=== PATIENT | female | born 1950 | race Caucasian/White ===

== ENCOUNTER 2021-03-02 09:55 | Day surgery (SDC) | payer OTHER, BC ==
--- NOTE | 2021-02-26 12:13 | RAD REPORT ---
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 COMPARISON: CHEST SINGLE VIEW dated 06/09/2010 FINDINGS: The lungs are clear. The heart is mildly prominent in size. No displaced fractures. IMPRESSION: Cardiac size is mildly prominent.
[2021-02-26 12:14] LABS: Absolute Lymphocytes (CBC) 1.2 K/uL (0.7-4.9); Basophils % 0.7 % (0-1.3); Hematocrit 42.9 % (36.0-45.0); MPV 8.4 fL (7.6-11.3); RBC Red Blood Cell Count 4.38 M/uL (3.86-4.86)
[2021-02-26 12:32] LABS: Protime INR 1.03
[2021-03-02] MEDS ORDERED: NA CHLORIDE 0.9% 500 ML ONE (10:26)
[2021-03-02 10:43] VITALS: TEMP 97.1; O2SAT 97
[2021-03-02] MEDS ORDERED: LIDOCAINE 1% 20 ML MDV ONE (11:04)
[2021-03-02] MEDS ORDERED: HEPA 1000U/500MLS 1,000 UNIT/500 ML BAG IV ONE (11:04)
[2021-03-02] MEDS ORDERED: MIDAZOLAM HCL 2 MG/2 ML INJ ONE (11:15)
[2021-03-02] MEDS ORDERED: FENTANYL CITR 100 MCG/2 ML ONE (11:15)
[2021-03-02] MEDS ORDERED: ATROPINE SULF 1 MG/10 ML SYR IV ONE (11:15)
[2021-03-02] MEDS ORDERED: NA CHLORIDE 0.9% 0 ML ONE (11:16)
[2021-03-02] MEDS ORDERED: NA CHLORIDE 0.9% 100 ML IV ONE (11:16)
[2021-03-02 13:26] VITALS: BP 140/61
--- NOTE | 2021-03-03 12:00 | OP ---
Date of Procedure: 03/02/2021 Surgeon: Dave Vernon MD Cook Supervisor: Pauline Lamas. Procedures: Left and right heart catheterization, cardiac output measurement, O2 saturation measurem ent. Indication: Critical aortic stenosis. Procedure In Detail: Ms. Arora is a 70-year-old woman with symptomatic aortic stenosis. Echocard iography showed aortic valve area of 0.6 sq cm. She has been having chest pain, shortness of breath, fatigue. Brought to the tender labor on 03/02/2021, prepped and draped in the routine sterile fashion. She was given Versed for sedation. We introduced a 6-[place] sheath in the right common femoral mega ry and 7-[place] sheath in the right common femoral vein using the Seldinger technique and 10 mL of Xy locaine. We introduced a Myrtle-Andrew catheter into the right common femoral vein all the way up to the right atrium, then right ventricle, then pulmonary artery. Pressures were measured along the way in the pulmonary artery and cardiac output measurements were taken. Oxygen saturations were measured i n the wedge PA, right ventricle, right atrium, IVC. The Myrtle-Andrew catheter was pulled out. Left cat heterization was done using JL4 and JR4 catheter. She has a normal left system. Her left main, LAD, and circumflex were normal. She had about a 50% distal RCA stenosis. I did not attempt to cross the valve as it appeared to be very calcified with a very tight stenosis on echocardiography. The patie nt tolerated the procedure well. There were no complications. Blood Loss: 5 mL. Anesthesia: Total conscious sedation was 60 minutes. Final Diagnoses: 1.Critical aortic stenosis by echo, normal cardiac output of 5.2 L/minute, normal O2 saturations, no rmal right heart pressures. 2.Mild coronary artery disease with 50% RCA. Plan: The plan is for a possible TAVR. I will consult Dr. Bryant in that regard. The patient will go home today after 2 hours of bedrest. Angio-Seal was used to close the case. She will come to see us in the office in the near future. АННА/YANIRA Voice ID: [id number] Report ID: [id number]
== END 2021-03-02 13:45 | disposition home or self-care (01) ==
LOC: CCL 09:55
DX: I35.0 Nonrheumatic aortic (valve) stenosis (principal); I25.10 Atherosclerotic heart disease of native coronary artery without angina pectoris; I10 Essential (primary) hypertension; E78.2 Mixed hyperlipidemia; I25.2 Old myocardial infarction; Z87.891 Personal history of nicotine dependence; Z20.822 Contact with and (suspected) exposure to COVID-19; Z82.49 Family history of ischemic heart disease and other diseases of the circulatory system
CPT/HCPCS: 93005; 85025; 80048; 36415; 85610; 85730; 71046; 93456; U0003; C1893; C1760; J2250; J3010; J7040; J1644; J0583

== ENCOUNTER 2022-06-28 12:53 | Emergency (ER) | payer OTHER, BC ==
--- OUTSIDE RECORDS SUMMARY | 2022-06-28 12:56 | XMS REPORT | Continuity of Care Document ---
:1950 Author Organization [facility] t Address [address] [place] [address] Care Team Providers Name Role Phone Elizabeth Dave Attending Clinician Unavailable TINO PARRA Attending Clinician Unavailable Leana Zamarripa Attending Clinician Unavailable Colette Peterson Attending Clinician Unavailable Meño Parra Admitting Clinician Unavailable Physician, No Primary or Family Admitting Clinician Unavaila ble Payers Payer Name Policy Type Policy Number Effective Date Expiration Date S ource Problems This patient has no known problems. Allergies, Adverse Reactions, Alerts Allergy Allergy Status Severity Reaction(s) Onset Inactive Treating Comm ents Source Name Type Date Date Clinician No Known DA Active U [facility] 03-12 Clear s 00:00: Jameson [address] [place] [address] No Known DA Active U [facility] Allergie -29 Clear s 00:00: Jameson [address] [place] [address] Medications This patient has no known medications. Procedures Procedure Date / Time Performed Performing Clinician Sourjorge alberto e [id number] 2021-04-07 00:00:00 CHAAB.01 [facility] [id number] 2021-04-07 00:00:00 CHAAB.01 [facility] Encounters Start End Encounter Admission Attending Care Care Encounter Source Date/Time Date/Time Type Type Clinicians Facility Department ID 2021-04-07 Inpatient SANDRA DaveCL [id number] [facility] 15:15:00 Elizabeth [id number] [facility] 2021-04-06 Inpatient MALCOLM DaveCL [facility] [id number] [facility] 10:30:00 Elizabeth [id number] [facility] 2022-06-22 2022-06-22 Outpatient SANGITA, [facility] [id number] [place] 00:00:00 00:00:00 JEWEL 058 Method i 2022-06-22 2022-06-22 Outpatient SANGITA, [facility] [id number] [place] 00:00:00 00:00:00 JEWEL 020 Method i 2021-12-28 2021-12-28 Outpatient SANGITA, [facility] [id number] [place] 00:00:00 00:00:00 JEWEL 606 Method i 2021-06-25 2021-06-25 Outpatient SANGITA, [facility] [id number] [place] 00:00:00 00:00:00 JEWEL 218 Method i 2021-06-25 2021-06-25 Outpatient SANGITA, [facility] [id number] [place] 00:00:00 00:00:00 JEWEL 170 Method i 2021-05-06 2021-05-06 Outpatient Marilou, MALCOLMCL [facility] [id number] [facility] 13:00:00 13:00:00 Leana [id number] [facility] 2021-03-12 2021-03-12 Outpatient Kristen, [facility] [id number] [facility] 09:30:00 09:30:00 Chevy [id number] [facility] 2020-12-25 2020-12-25 Outpatient SANGITA, [facility] [id number] [place] 00:00:00 00:00:00 JEWEL 349 Method i 2020-10-29 2020-10-29 Outpatient SANGITA, [facility] [id number] [place] 00:00:00 00:00:00 JEWEL 724 Method i 2020-10-15 2020-10-15 Outpatient SANGITA, [facility] [id number] [place] 00:00:00 00:00:00 JEWEL 384 Method i 2020-10-15 2020-10-15 Outpatient [facility] [id number] [address] [place] 00:00:00 00:00:[address] 2020-07-02 2020-07-02 Outpatient SANGITA [facility] [id number] [place] 00:00:00 00:00:00 TINO [address] Results Test Description Test Time Test Comments Results Result Comments Source COMPREHENSIVE METABOLIC PANEL 2021-04-08 05:14:00 Test Item Value Reference Range Interpretation Comme nts SODIUM (test code = NA) 141 mEq/L 134-147 N POTASSIUM (test code = K) 4.1 mEq/L 3.4-5.0 N CHLORIDE (test code = CL) 114 mEq/L 100-108 H CARBON DIOXIDE (test code = CO2) 24 mEq/l 21-33 N ANION GAP (test code = GAP) 7 0-20 N GLUCOSE (test code = GLU) 145 mg/dL 70-110 H BLOOD UREA NITROGEN (test code = 13 mg/dL 7-18 N BUN) GLOMERULAR FILTRATION RATE (test 61.5 70-80 L Units of measure = code = GFR) ml/min/1.73 m2 CREATININE (test code = CREAT) 0.9 mg/dL 0.6-1.3 N TOTAL PROTEIN (test code = PROT) 6.0 g/dL 6.4-8.2 L ALBUMIN (test code = ALB) 3.40 g/dL 3.4-5.0 N CALCIUM (test code = CA) 8.9 mg/dL 8.0-10.5 N BILIRUBIN TOTAL (test code = BILT) 0.50 mg/dL 0.0-1.0 N SGOT/AST (test code = AST) 18 IUnit/L 15-37 N SGPT/ALT (test code = ALT) 9 IUnit/L 30-65 L ALKALINE PHOSPHATASE TOTAL (test 71 IUnit/L 20-125 N code = ALKP) CBC W/AUTO [id number] 04:59:00 Test Item Value Reference Range Interpretation Comments WHITE BLOOD CELL (test code = 13.6 x10 3/uL 4.5-11.0 H WBC) RED BLOOD CELL (test code = 3.91 x10 6/uL 3.54-5.02 N RBC) HEMOGLOBIN (test code = HGB) 12.8 g/dL 11.0-15.0 N HEMATOCRIT (test code = HCT) 40.2 % 33.0-45.0 N MEAN CELL VOLUME (test code = 102.8 fL 81.0-99.0 H MCV) MEAN CELL HGB (test code = 32.7 pg 27.0-33.0 N MCH) MEAN CELL HGB CONCETRATION 31.8 g/dL 33.0-37.0 L (test code = MCHC) RED CELL DISTRIBUTION WIDTH CV 11.9 % 11.5-14.5 N (test code = RDW) RED CELL DISTRIBUTION WIDTH SD 44.8 fL 37.0-54.0 N (test code = RDW-SD) PLATELET COUNT (test code = 182 x10 3/uL 150-400 N PLT) MEAN PLATELET VOLUME (test 10.1 fL 7.0-9.0 H code = MPV) NEUTROPHIL % (test code = NT%) 86.6 % 56.0-77.0 H IMMATURE GRANULOCYTE % (test 0.9 % 0.0-2.0 N code = IG%) LYMPHOCYTE % (test code = LY%) 7.6 % 14.0-32.0 L MONOCYTE % (test code = MO%) 4.7 % 4.8-9.0 L EOSINOPHIL % (test code = EO%) 0.0 % 0.3-3.7 L BASOPHIL % (test code = BA%) 0.2 % 0.0-2.0 N NUCLEATED RBC % (test code = 0.0 % 0-0 N NRBC%) NEUTROPHIL # (test code = NT#) 11.81 x10 3/uL 2.0-7.6 H IMMATURE GRANULOCYTE # (test 0.12 x10 3/uL 0.00-0.03 H code = IG#) LYMPHOCYTE # (test code = LY#) 1.04 x10 3/uL 1.0-3.8 N MONOCYTE # (test code = MO#) 0.64 x10 3/uL 0.1-0.8 N EOSINOPHIL # (test code = EO#) 0.00 x10 3/uL 0.0-0.2 N BASOPHIL # (test code = BA#) 0.03 x10 3/uL 0.0-0.2 N NUCLEATED RBC # (test code = 0.00 x10 3/uL 0.0-0.1 N NRBC#) MANUAL DIFF REQUIRED (test NO code = MDIFF) BASIC METABOLIC [id number] 14:38:00 Test Item Value Reference Range Interpretation Comments SODIUM (test code = NA/ABG) MEQ/L 134-147 POTASSIUM (test code = K/ABG) MEQ/L 3.4-5.0 CHLORIDE (test code = CL/ABG) MEQ/L 100-108 CREATININE ABG (test code = CREAABG) mg/dL 0.6-1.0 POC IONIZED CALCIUM (test code = MMOL/L 1.12-1.32 POCCA) POC GLUCOSE (test code = POCGLU) MG/DL 70-110 [id number] 14:38:00 Test Item Value Reference Range Interpretation Comments HEMOGLOBIN (test code = HGB/ABG) G/DL 11.0-15.0 [id number] 14:38:00 Test Item Value Reference Range Interpretation Comments HEMATOCRIT (test code = HCT/ABG) % 33.0-45.0 POC LACTIC [id number] 14:38:00 Test Item Value Reference Range Interpretation Comments POC LACTIC ACID (test code = POCLAC) mmol/l 0.9-1.7 POC VENOUS BLOOD [id number] 14:38:00 Test Item Value Reference Range Interpretation Comments POC VENOUS BLOOD GAS PH (test 7.323 7.33-7.45 L code = POCPHV) POC VENOUS BLOOD GAS PCO2 (test 49.1 mmHg 43-47 H code = XQYZOQ4E) POC VENOUS BLOOD GAS PO2 (test 62.7 mmHG 10-50 H code = SDZQG2G) POC TCO2 VENOUS (test code = 27.0 FZKGZI2C) POC HCO3 VENOUS (test code = 25.5 MMOL/L 22-27 N GNJBCL7U) POC BASE EXCESS VENOUS (test code -1.0 MMOL/L -4.0-4.0 N = POCBEV) POC O2 SATURATION VENOUS (test 89.5 % 60-80 H code = ATIE1VU) BASIC METABOLIC [id number] 14:38:00 Test Item Value Reference Range Interpretation Comments SODIUM (test code = NA/ABG) MEQ/L 134-147 POTASSIUM (test code = K/ABG) MEQ/L 3.4-5.0 CHLORIDE (test code = CL/ABG) MEQ/L 100-108 CREATININE ABG (test code = CREAABG) mg/dL 0.6-1.0 POC IONIZED CALCIUM (test code = MMOL/L 1.12-1.32 POCCA) POC GLUCOSE (test code = POCGLU) MG/DL 70-110 [id number] 14:38:00 Test Item Value Reference Range Interpretation Comments HEMOGLOBIN (test code = HGB/ABG) G/DL 11.0-15.0 [id number] 14:38:00 Test Item Value Reference Range Interpretation Comments HEMATOCRIT (test code = HCT/ABG) % 33.0-45.0 POC LACTIC [id number] 14:38:00 Test Item Value Reference Range Interpretation Comments POC LACTIC ACID (test code = 0.6 mmol/l 0.9-1.7 L POCLAC) POC VENOUS BLOOD [id number] 14:38:00 Test Item Value Reference Range Interpretation Comments POC VENOUS BLOOD GAS PH (test 7.323 7.33-7.45 L code = POCPHV) POC VENOUS BLOOD GAS PCO2 (test 49.1 mmHg 43-47 H code = KJLGVE0Q) POC VENOUS BLOOD GAS PO2 (test 62.7 mmHG 10-50 H code = OFGGP3X) POC TCO2 VENOUS (test code = 27.0 CXUMGB8O) POC HCO3 VENOUS (test code = 25.5 MMOL/L 22-27 N KPGTDQ1Q) POC BASE EXCESS VENOUS (test code -1.0 MMOL/L -4.0-4.0 N = POCBEV) POC O2 SATURATION VENOUS (test 89.5 % 60-80 H code = HERQ3RB) BASIC METABOLIC [id number] 14:38:00 Test Item Value Reference Range Interpretation Comments SODIUM (test code = NA/ABG) 142 MEQ/L 134-147 N POTASSIUM (test code = K/ABG) 3.8 MEQ/L 3.4-5.0 N CHLORIDE (test code = CL/ABG) 108 MEQ/L 100-108 N CREATININE ABG (test code = 0.9 mg/dL 0.6-1.0 N CREAABG) POC IONIZED CALCIUM (test code = 1.05 MMOL/L 1.12-1.32 L POCCA) POC GLUCOSE (test code = POCGLU) 109 MG/DL 70-110 N [id number] 14:38:00 Test Item Value Reference Range Interpretation Comments HEMOGLOBIN (test code = HGB/ABG) G/DL 11.0-15.0 [id number] 14:38:00 Test Item Value Reference Range Interpretation Comments HEMATOCRIT (test code = HCT/ABG) % 33.0-45.0 POC LACTIC [id number] 14:38:00 Test Item Value Reference Range Interpretation Comments POC LACTIC ACID (test code = 0.6 mmol/l 0.9-1.7 L POCLAC) POC VENOUS BLOOD [id number] 14:38:00 Test Item Value Reference Range Interpretation Comments POC VENOUS BLOOD GAS PH (test 7.323 7.33-7.45 L code = POCPHV) POC VENOUS BLOOD GAS PCO2 (test 49.1 mmHg 43-47 H code = IMLXHA8S) POC VENOUS BLOOD GAS PO2 (test 62.7 mmHG 10-50 H code = UICAE4B) POC TCO2 VENOUS (test code = 27.0 AKOBOJ5Y) POC HCO3 VENOUS (test code = 25.5 MMOL/L 22-27 N DMQBPJ1R) POC BASE EXCESS VENOUS (test code -1.0 MMOL/L -4.0-4.0 N = POCBEV) POC O2 SATURATION VENOUS (test 89.5 % 60-80 H code = KWID3CD) BASIC METABOLIC [id number] 14:38:00 Test Item Value Reference Range Interpretation Comments SODIUM (test code = NA/ABG) 142 MEQ/L 134-147 N POTASSIUM (test code = K/ABG) 3.8 MEQ/L 3.4-5.0 N CHLORIDE (test code = CL/ABG) 108 MEQ/L 100-108 N CREATININE ABG (test code = 0.9 mg/dL 0.6-1.0 N CREAABG) POC IONIZED CALCIUM (test code = 1.05 MMOL/L 1.12-1.32 L POCCA) POC GLUCOSE (test code = POCGLU) 109 MG/DL 70-110 N [id number] 14:38:00 Test Item Value Reference Range Interpretation Comments HEMOGLOBIN (test code = HGB/ABG) 11.8 G/DL 11.0-15.0 N [id number] 14:38:00 Test Item Value Reference Range Interpretation Comments HEMATOCRIT (test code = HCT/ABG) % 33.0-45.0 POC LACTIC [id number] 14:38:00 Test Item Value Reference Range Interpretation Comments POC LACTIC ACID (test code = 0.6 mmol/l 0.9-1.7 L POCLAC) POC VENOUS BLOOD [id number] 14:38:00 Test Item Value Reference Range Interpretation Comments POC VENOUS BLOOD GAS PH (test 7.323 7.33-7.45 L code = POCPHV) POC VENOUS BLOOD GAS PCO2 (test 49.1 mmHg 43-47 H code = BSMDFJ0V) POC VENOUS BLOOD GAS PO2 (test 62.7 mmHG 10-50 H code = VOTFV4N) POC TCO2 VENOUS (test code = 27.0 EXERXU5U) POC HCO3 VENOUS (test code = 25.5 MMOL/L 22-27 N WQCXZU8X) POC BASE EXCESS VENOUS (test code -1.0 MMOL/L -4.0-4.0 N = POCBEV) POC O2 SATURATION VENOUS (test 89.5 % 60-80 H code = FCFG8FH) BASIC METABOLIC [id number] 14:38:00 Test Item Value Reference Range Interpretation Comments SODIUM (test code = NA/ABG) 142 MEQ/L 134-147 N POTASSIUM (test code = K/ABG) 3.8 MEQ/L 3.4-5.0 N CHLORIDE (test code = CL/ABG) 108 MEQ/L 100-108 N CREATININE ABG (test code = 0.9 mg/dL 0.6-1.0 N CREAABG) POC IONIZED CALCIUM (test code = 1.05 MMOL/L 1.12-1.32 L POCCA) POC GLUCOSE (test code = POCGLU) 109 MG/DL 70-110 N [id number] 14:38:00 Test Item Value Reference Range Interpretation Comments HEMOGLOBIN (test code = HGB/ABG) 11.8 G/DL 11.0-15.0 N [id number] 14:38:00 Test Item Value Reference Range Interpretation Comments HEMATOCRIT (test code = HCT/ABG) 35 % 33.0-45.0 N POC LACTIC [id number] 14:38:00 Test Item Value Reference Range Interpretation Comments POC LACTIC ACID (test code = 0.6 mmol/l 0.9-1.7 L POCLAC) POC VENOUS BLOOD [id number] 14:38:00 Test Item Value Reference Range Interpretation Comments POC VENOUS BLOOD GAS PH (test 7.323 7.33-7.45 L code = POCPHV) POC VENOUS BLOOD GAS PCO2 (test 49.1 mmHg 43-47 H code = WSOWXC2Q) POC VENOUS BLOOD GAS PO2 (test 62.7 mmHG 10-50 H code = GEOUK7E) POC TCO2 VENOUS (test code = 27.0 CUXAXM9L) POC HCO3 VENOUS (test code = 25.5 MMOL/L 22-27 N FSBHAX8E) POC BASE EXCESS VENOUS (test code -1.0 MMOL/L -4.0-4.0 N = POCBEV) POC O2 SATURATION VENOUS (test 89.5 % 60-80 H code = BYUK9SM) - XR CHEST 1 [id number] 12:01:00 [facility] 1950 Sex: FFAX: Jing Pino MD [phone] [place]: [address] St: [facility] FAX: Colette Barkley [phone] --- Name: PALMER RODAS [facility] : 1950 Age/S: 70/F [address] [place] [address] Blvd Unit #: [id number] Loc: [place] [address] Phys: Jing Pena MD Acct: [id number] Dis Date: Status: ADM IN PHONE #: [phone] Exam Date: 04/07/2021 1151 FAX #: [phone] Reason: PREOP EXAMS: CPT CODE: [id number] XR CHEST 1 V 87708 PROCEDURE: CHEST SINGLE VIEW INDICATION: PREOP; aortic stenosis COMPARISON: CTA chest 03/12/2021 FINDINGS: AP portable chest obtained with patient semiupright, 2 images total. Faintly radiopaque EKG leads overlie the chest. Faint opacities related to overlying bilateral breast implants. The lungs are otherwise clear. No pleural abnormality. The cardiomediastinal silhouette is normal for projection as is the pulmonary vasculature. The tracheal air shadow is midline. Skeleton is intact. IM PRESSION: No acute findings. SL: [id number] Electronically Signed by Miranda Adhikari on 04/07/2021 at 1201 Reported and signed by: Lamin Adhikari M.D. CC: Jing Pena MD; Colette Peterson MD Technologist: RT Felicia(R) Trnscrd Date/Time/By: 04/07/2021 (1201) : By: ThuL Orig Print D/T: S: 04/07/2021 (7625) PAGE 1 Signed ReportCOVID 19 Asymptomatic IH [id number] 13:35:00 Test Item Value Reference Range Interpretation Comments COVID 19 Asymptomatic Negative Negative A nega tive result is IH AG (test code = presumpti ve and should COVNONPUIAG) be confirmedwit h an FDA authorized mole cular assay, if neces cuco forpatient cheko gement.A positive result does not rule out co-inf ections withother patho gens.This test detects kelechi th viable (live) and non-viable,SARS -CoV, and SARS-CoV-2. Isidoro t performance dep ends on theamount of vi kylah (antigen) in e sample.This isidoro t has not been FDA cleare d or approved; the t est hasbeen authori zed by FDA under an Em ergency Use Authorizati on(EUA) for use by labo ratories certified under the CLIA thatmeet the requirements to perform moderate, high or waivedcomplexit y tests. COMMENTS: If not done this admissionPROTHROMBIN [id number] 12:45:00 Test Item Value Reference Range Interpretation Comments PROTHROMBIN TIME 12.1 SECONDS 9.3-12.9 N PATIENT (test code = PTP) INTERNATIONAL NORMAL 1.1 0.8-1.2 N TARGET INR BY RATIO (test code = INDICATIO N Indication INR) INR1. Prophylax is of venous thrombos is 2.0 - 3.0 (orthoped ic surgery), Proph ylaxis of venous throm bosis (other than hig h-risk surgery), Treat ment of Deep Vein Thrombosis/Pulm onary Embolism, Preve ntion of systemic emb olism - Tissue heart va lves, Acute Myocardia l Infarction (to prevent systemic emboli sm), Valvular heart disease, Atrial Fibrillation, Bileaflet mecha nical valve in aortic position.2. Mec hanical prosthetic valv es (high risk), 2. 5 - 3.5 Presence of Lup us Anticoagulant o r Antiphospholipi d Antibodies, Pre vention of systemic emb olism - Acute Myocardia l Infarction (to prevent recurrent infar ct). BASIC METABOLIC [id number] 12:40:00 Test Item Value Reference Range Interpretation Comments SODIUM (test code = NA) 142 mEq/L 134-147 N POTASSIUM (test code = 4.0 mEq/L 3.4-5.0 N K) CHLORIDE (test code = 110 mEq/L 100-108 H CL) CARBON DIOXIDE (test 30 mEq/l 21-33 N code = CO2) ANION GAP (test code = 6 0-20 N GAP) GLUCOSE (test code = 100 mg/dL 70-110 N GLU) BLOOD UREA NITROGEN 14 mg/dL 7-18 N (test code = BUN) GLOMERULAR FILTRATION 54.5 70-80 L Units of measure = RATE (test code = GFR) ml/mi n/1.73 m2 CREATININE (test code = 1.0 mg/dL 0.6-1.3 N CREAT) CALCIUM (test code = 9.9 mg/dL 8.0-10.5 N CA) [id number] 12:40:00 Test Item Value Reference Range Interpretation Comments ALBUMIN (test code = ALB) 4.30 g/dL 3.4-5.0 N B-TYPE NATRIURETIC [id number] 12:40:00 Test Item Value Reference Range Interpretation Comments B-TYPE NATRIURETIC PEPTIDE (test 49.0 PG/ML 0-100 N code = BNP) CBC W/AUTO [id number] 12:40:00 Test Item Value Reference Range Interpretation Comments WHITE BLOOD CELL (test code = 5.6 x10 3/uL 4.5-11.0 N WBC) RED BLOOD CELL (test code = 4.75 x10 6/uL 3.54-5.02 N RBC) HEMOGLOBIN (test code = HGB) 15.2 g/dL 11.0-15.0 H HEMATOCRIT (test code = HCT) 48.1 % 33.0-45.0 H MEAN CELL VOLUME (test code = 101.3 fL 81.0-99.0 H MCV) MEAN CELL HGB (test code = MCH) 32.0 pg 27.0-33.0 N MEAN CELL HGB CONCETRATION 31.6 g/dL 33.0-37.0 L (test code = MCHC) RED CELL DISTRIBUTION WIDTH CV 11.9 % 11.5-14.5 N (test code = RDW) RED CELL DISTRIBUTION WIDTH SD 44.9 fL 37.0-54.0 N (test code = RDW-SD) PLATELET COUNT (test code = 250 x10 3/uL 150-400 N PLT) MEAN PLATELET VOLUME (test code 10.1 fL 7.0-9.0 H = MPV) NEUTROPHIL % (test code = NT%) 62.7 % 56.0-77.0 N IMMATURE GRANULOCYTE % (test 0.2 % 0.0-2.0 N code = IG%) LYMPHOCYTE % (test code = LY%) 30.2 % 14.0-32.0 N MONOCYTE % (test code = MO%) 5.9 % 4.8-9.0 N EOSINOPHIL % (test code = EO%) 0.5 % 0.3-3.7 N BASOPHIL % (test code = BA%) 0.5 % 0.0-2.0 N NUCLEATED RBC % (test code = 0.0 % 0-0 N NRBC%) NEUTROPHIL # (test code = NT#) 3.53 x10 3/uL 2.0-7.6 N IMMATURE GRANULOCYTE # (test 0.01 x10 3/uL 0.00-0.03 N code = IG#) LYMPHOCYTE # (test code = LY#) 1.70 x10 3/uL 1.0-3.8 N MONOCYTE # (test code = MO#) 0.33 x10 3/uL 0.1-0.8 N EOSINOPHIL # (test code = EO#) 0.03 x10 3/uL 0.0-0.2 N BASOPHIL # (test code = BA#) 0.03 x10 3/uL 0.0-0.2 N NUCLEATED RBC # (test code = 0.00 x10 3/uL 0.0-0.1 N NRBC#) MANUAL DIFF REQUIRED (test code NO = MDIFF) CREATININE W ESTIMATED [id number] 12:09:00 Test Item Value Reference Range Interpretation Comments BEDSIDE CREATININE (test code = 0.8 MG/DL 0.6-1.3 N CREATBED) GLOMERULAR FILTRATION RATE POC 75 ML/MIN (test code = GFRBED) ENTER BEDSIDE CREATININE RESULT: 0.81Serial Number: [id number] Name of User Performing Test: TCH- CT ANGIO [id number] 12:02:00 [facility] 1950 Sex: FName: PALMER RODAS [facility] [place] : 1950 Age/S: 70 / F [address] [place] [address] Blvd Unit #: [id number] Loc: [place] [address] Phys: Leana Zamarripa [employer] Acct: [id number] Dis Date: Status: REG CLI PHONE #: [phone] Exam Date: 03/12/2021 0933 FAX #: [phone] Reason: TAVR EXAMS: CPTCODE: [id number] CT ANGIO CHEST [address] CHEST, ABDOMEN AND PELVIS CT ANGIOGRAM WITH AND WITHOUT IV CONTRAST WITH MULTIPLANAR REFORMATS AND 3D RECONSTRUCTIONS (TAVR PROTOCOL). DATE: 03/12/2021 8:47 AM : 1950; Age: 70 years y/o Female INDICATION: Aortic stenosis ADMINISTERED CONTRAST: 100 mL of Isovue 300 intravenously. DLP: 1547 mGy-cm CT imaging performed at this location utilizes radiation dose optimization techniques which include one or more of the following: -Automated exposure control -Adjustment of the mA and/or kV according to patient size -Use of iterative reconstruction technique FINDINGS: Contiguous 0.5 mm axial images of the chest, abdomen and pelvis were obtained with IV contrast using the CT angiogram protocol. The acquired data was used to create 5 mm axial reconstructions coronal reformatted images and 3-D reconstructions with the use of the Workstation. CHEST: Estimated aortic diameters are as follows: Aortic annulus: 2.3 cm Aortic root: 3 cm Sinotubular junction: 2.5 cm Right cusp height (to RCA takeoff): 1.3 cm Left cusp height (to Left main takeoff): 1.3 cm Mid ascending aorta: 3.4 cm Mid transverse arch: 2.7 cm Descending thoracic aorta at the level of the pulmonary arteries: 2.3 cm Heart is normal in size. Mild coronary arteries calcification. No pericardial effusion. Moderate aortic root calcification. Minimal scattered atherosclerotic calcifications involving the thoracic aorta. No pleural effusion. Minimal pulmonary emphysema. No consolidation. Bilateral breastprosthesis is seen. ABDOMEN: Estimated aortoiliac/iliofemoral arterial diameters are as follows: Abdominal aorta just below the renal arteries: 1.7 cm Distal abdominal aorta at iliac bifurcation: 1.7 cm PAGE 1 Signed Report (CONTINUED) Name: PALMER RODAS [facility] [place] : 1950 Age/S: 70 / F [address] [place] [address] Blvd Unit #: [id number] Loc: [place] [address] Phys: Leana Zamarripa VIK Acct: [id number] Dis Date: Status: REG CLI PHONE #: [phone] Exam Date: 03/12/2021 0933 FAX #: Reason: TAVR EXAMS: CPT CODE: [id number] CT ANGIO CHEST [id number] <Continued> Right commoniliac artery: 1 cm Left common iliac artery: 1 cm Right common femoral artery: 1 cm Left common femoral artery: 1 cm Celiac artery, superior mesenteric artery and inferior mesenteric artery are patent. Atherosclerotic changes are seen involving the aorta. Mild atherosclerotic changes at the origin of bilateral renal arteries. Mild atherosclerotic changes involving the major pelvic arteries without flow limiting stenosis. Streak artifacts limits detailed evaluation of the solid organs. Liver, gallbladder, adrenal glands, spleen, kidneys and pancreas appears grossly unremarkable. No bowel obstruction. Normal appendix. Prior hysterectomy. Bladder is not well distended limiting its evaluation. Spine degenerative changes. IMPRESSION: 1. Moderate aortic root calcification. Minimal scattered atherosclerotic calcifications involving the thoracic aorta. 2. Mild coronary artery disease. 3. Minimal pulmonary emphysema without consolidation. 4. No acute intra-abdominal process. at 1202 Reported and signed by: Lux Vargas D.O. CC: Leana Zamarripa; Colette Peterson MD; Meño Parra MD Technologist:RT Justin(R) CTDI:DLP: Trnscb Date/Time: 03/12/2021 (1202) [email or web address] Orig Print D/T: S: 03/12/2021 (8322) PAGE 2 Signed Report- CTA HANSEL Ruiz [id number] 12:02:00 [facility]: PALMER RODAS : 1950 Sex: FName: PALMER RODAS [facility] [place] : 1950 Age/S: 70 / F [address] [place] [address] Blvd Unit#: [id number] Loc: [place] [address] Phys: Leana Zamarripa [employer] Acct: [id number] Dis Date: Status: REG CLI PHONE #: [phone] Exam Date: 03/12/2021 0933 FAX #: [phone] Reason: TAVR EXAMS: CPT CODE: [id number] CTA ABD PEL W CONT [id number] CHEST, ABDOMEN AND PELVIS CT ANGIOGRAM WITH AND WITHOUT IV CONTRAST WITH MULTIPLANAR REFORMATS AND 3D RECONSTRUCTIONS (TAVR PROTOCOL). DATE: 03/12/2021 8:47 AM : 1950; Age: 70 years y/o Female INDICATION: Aortic stenosis ADMINISTERED CONTRAST: 100 mL of Isovue 300 intravenously. DLP: 1547 mGy-cm CT imaging performed at this location utilizes radiation dose optimization techniques which include one or more of the following: -Automated exposure control -Adjustment of the mA and/or kV according to patient size -Use of iterative reconstruction technique FINDINGS: Contiguous 0.5 mm axial images of the chest, abdomen and pelvis were obtained with IV contrastusing the CT angiogram protocol. The acquired data was used to create 5 mm axial reconstructions coronal reformatted images and 3-D reconstructions with the use of the Workstation. CHEST: Estimated aortic diameters are as follows: Aortic annulus: 2.3 cm Aortic root: 3 cm Sinotubular junction: 2.5 cm Right cusp height (to RCA takeoff): 1.3 cm Left cusp height (to Left main takeoff): 1.3 cm Mid ascending aorta: 3.4 cm Mid transverse arch: 2.7 cm Descending thoracic aorta at the level of the pulmonary arteries: 2.3 cm Heart is normal in size. Mild coronary arteries calcification. No pericardial effusion. Moderate aortic root calcification. Minimal scattered atherosclerotic calcifications involving the thoracic aorta. No pleural effusion. Minimal pulmonary emphysema. No consolidation. Bilateral breast prosthesis is seen. ABDOMEN: Estimated aortoiliac/iliofemoral arterial diameters are as follows: Abdominal aorta just below the renal arteries: 1.7 cm Distal abdominal aorta at iliac bifurcation: 1.7cm PAGE 1 Signed Report (CONTINUED) Name: PALMER RODAS [facility] : 1950 Age/S: 70 / F [address] [place] [address] Blvd Unit #: [id number] Loc: [place] [address] Phys: Leana Zamarripa Acct: [id number] Dis Date: Status: REG CLI PHONE #: [phone] Exam Date: 03/12/2021932 FAX #: [phone] Reason: TAVR EXAMS: CPT CODE: [id number] CTA ABD PEL W CONT 01548 <Continued> Right common iliac artery: 1 cm Left common iliac artery: 1 cm Right common femoral artery: 1 cm Left commonfemoral artery: 1 cm Celiac artery, superior mesenteric artery and inferior mesenteric artery are patent. Atherosclerotic changes are seen involving the aorta. Mild atherosclerotic changes at the origin of bilateral renal arteries. Mild atherosclerotic changes involving the major pelvic arteries without flow limiting stenosis. Streak artifacts limits detailed evaluation of the solid organs. Liver, gallbladder, adrenal glands, spleen, kidneys and pancreas appears grossly unremarkable. No bowel obstruction. Normal appendix. Prior hysterectomy. Bladder is not well distended limiting its evaluation. Spine degenerative changes. IMPRESSION: 1. Moderate aortic root calcification. Minimal scattered atherosclerotic calcifications involving the thoracic aorta. 2. Mild coronary artery disease. 3. Minimal pulmonary emphysema without consolidation. 4. No acute intra-abdominal process. at 1202 Reported and signed by: Lux Vargas D.O. CC: Leana Zamarripa; Colette Peterson MD; Meño Parra MD Technologist:RT Justin(R) CTDI: DLP: Trnscb Date/Time: 03/12/2021 (1202) [email or web address] Orig Print D/T: S: 03/12/2021 (9082) PAGE2 Signed Report- CTA HEART W CN ART/[id number] 12:02[facility]00[facility] 1950 Sex: FName: PALMER RODAS [facility] : 1950 Age/S: 70 / F [address] [place] [address] Unit#: [id number] Loc: [place] [address] Phys: Leana Zamarripa [facility] Acct: [id number] Dis Date: Status: REG CLI PHONE #: [phone] Exam Date: 03/12/2021 0933 FAX #: [phone] Reason: EXAMS: CPT CODE:[id number] CTA HEART W CN ART/GRAFTS 23778 CHEST, ABDOMEN AND PELVIS CT ANGIOGRAM WITH AND WITHOUT IV CONTRAST WITH MULTIPLANAR REFORMATS AND 3D RECONSTRUCTIONS (TAVR PROTOCOL). DATE: 03/12/2021 8:47 AMDOB: 1950; Age: 70 years y/o Female INDICATION: Aortic stenosis ADMINISTERED CONTRAST: 100 mL of Isovue 300 intravenously. DLP: 1547 mGy-cm CT imaging performed at this location utilizes radiationdose optimization techniques which include one or more of the following: -Automated exposure control-Adjustment of the mA and/or kV according to patient size -Use of iterative reconstruction techniqueFINDINGS: Contiguous 0.5 mm axial images of the chest, abdomen and pelvis were obtained with IV contrast using the CT angiogram protocol. The acquired data was used to create 5 mm axial reconstructionscoronal reformatted images and 3-D reconstructions with the use of the Workstation. CHEST: Estimatedaortic diameters are as follows: Aortic annulus: 2.3 cm Aortic root: 3 cm Sinotubular junction: 2.5 cm Right cusp height (to RCA takeoff): 1.3 cm Left cusp height (to Left main takeoff): 1.3 cm Mid ascending aorta: 3.4 cm Mid transverse arch: 2.7 cm Descending thoracic aorta at the level of the pulmonary arteries: 2.3 cm Heart is normal in size. Mild coronary arteries calcification. No pericardial effusion. Moderate aortic root calcification. Minimal scattered atherosclerotic calcifications involving the thoracic aorta. No pleural effusion. Minimal pulmonary emphysema. No consolidation. Bilateralbreast prosthesis is seen. ABDOMEN: Estimated aortoiliac/iliofemoral arterial diameters are as follows: Abdominal aorta just below the renal arteries: 1.7 cm Distal abdominal aorta at iliac bifurcation: 1.7 cm PAGE 1 Signed Report (CONTINUED) Name: PALMER RODAS [facility] : 1950 Age/S: 70 / F [address] [place] [address] Blvd Unit #: [id number] Loc: [place] [address] Phys: Leana Zamarripa [facility] Acct: [id number] Dis Date: Status: REG CLI PHONE #: [phone] Exam Date: 03/12/2021 0933 FAX #: [phone] Reason: EXAMS: CPT CODE: [id number] CTA HEART W CN ART/GRAFTS 11820 <Continued> Right common iliac artery: 1 cm Left common iliac artery: 1 cm Right common femoral artery: 1 cm Leftcommon femoral artery: 1 cm Celiac artery, superior mesenteric artery and inferior mesenteric arteryare patent. Atherosclerotic changes are seen involving the aorta. Mild atherosclerotic changes at the origin of bilateral renal arteries. Mild atherosclerotic changes involving the major pelvic arteries without flow limiting stenosis. Streak artifacts limits detailed evaluation of the solid organs. Liver, gallbladder, adrenal glands, spleen, kidneys and pancreas appears grossly unremarkable. No bowelobstruction. Normal appendix. Prior hysterectomy. Bladder is not well distended limiting its evaluation. Spine degenerative changes. IMPRESSION: 1. Moderate aortic root calcification. Minimal scatteredatherosclerotic calcifications involving the thoracic aorta. 2. Mild coronary artery disease. 3. Minimal pulmonary emphysema without consolidation. 4. No acute intra-abdominal process. at 1202 Reported and signed by: Lux Vargas D.O. CC: Leana Zamarripa; Cloette Peterson MD; Meño Parra MD Technologist:RT Justin(R) CTDI: DLP: Trnscb Date/Time: 03/12/2021 (1202) [email or web address] Orig Print D/T: S: 03/12/2021 (2071) PAGE 2 Signed Report- DUP EXTRACRANIAL [id number] 11:02:00 [facility] 1950 Sex: FName: PALMER RODAS [facility] : 1950 Age/S: 70 / F [address] [place] [address] Unit #: [id number] Loc: [place] [address] Phys: Leana Zamarripa Acct: [id number] Dis Date: Status: REG CLI PHONE #: [phone] Exam Date: 03/12/2021 1023 FAX #: [phone] Reason: AORTIC STENOSIS. EXAMS: CPT CODE: [id number] DUP EXTRACRANIAL TRAVIS [id number] BILATERAL CAROTID ULTRASOUND HISTORY: Preoperative exam TECHNIQUE: Cedeño-scale, color Doppler and spectral Doppler of the carotid arteries was performed. Any reported ICA stenoses indirectly reference the distal internal carotid diameter as the denominator for stenosis measurement, utilizing consensus panel criteria. COMPARISON: None RIGHT: There ismild carotid bulb plaque. ICA PSV 76 cm/sec CCA PSV 81 cm/sec ICA/CCA ratio 0.9 Vertebral flow is antegrade. LEFT: There is mild carotid bulb plaque. ICA PSV 93 cm/sec CCA PSV 66 cm/sec ICA/CCA ratio 1.4 Vertebral flow is antegrade. IMPRESSION: 1. RIGHT: ICA stenosis less than 50 % by velocity criteria. 2. LEFT: ICA stenosis less than 50 % by velocity criteria. End Impression Consensus panel Doppler US criteria for diagnosis of ICA stenosis. Stenosis (%) ICA PSV (cm/sec) ICA/CCA ratio <50 <125 <2.0 50- 69 125-230 2.0-4.0 >70 but less than >230 >4.0 near occlusion Near occlusion High, low, or Variable undetectable SL: [id number] PAGE 1 Signed Report (CONTINUED) Name: PALMER RODAS [facility] : 1950 Age/S: 70 / F [address] [place] [address] Blvd Unit #: [id number] Loc: [place] [address] Phys: Leana Zamarripa [facility] Acct: [id number] Dis Date: Status: REG CLI PHONE #: [phone] Exam Date: 03/12/2021 1023 FAX #: [phone] Reason: AORTIC STENOSIS. EXAMS: CPT CODE: [id number] DUP EXTRACRANIAL TRAVIS [id number] <Continued> at 1102 Reported and signed by: Kemar Hirsch M.D. CC: Leana Zamarripa; Colette Peterson MD; Meño Parra MD Technologist: Daniella Cartagena RDMS(Daniel)(BR) [facility] Date/Time: 03/12/2021 (3286) [email or web address] Orig Print D/T: S: 03/12/2021 (3393) Probe: PAGE 2 Signed Report
[2022-06-28 14:19] LABS: Absolute Lymphocytes (CBC) 0.7 K/uL (0.7-4.9); Hematocrit 41.1 % (36.0-45.0); Lymphocytes % 5.1 % (15.3-44.8); MCV 95.9 fL (80-100); MPV 7.4 fL (7.6-11.3); RBC Red Blood Cell Count 4.29 M/uL (3.86-4.86)
--- NOTE | 2022-06-28 14:30 | RAD REPORT ---
EXAM DESCRIPTION: Laina Single View06/28/2022 2:00 pm CLINICAL HISTORY: Generalized weakness COMPARISON: 2020 FINDINGS: Bilateral breast implants resulting haziness of mid lungs. Lungs are mildly hyperaerated The lungs appear clear of acute infiltrate. The heart is normal size IMPRESSION: No acute abnormalities displayed
[2022-06-28 14:55] LABS: Troponin High Sensitivity 5.6 pg/mL (<58.9)
[2022-06-28 15:00] LABS: Potassium 3.7 mmol/L (3.5-5.1)
[2022-06-28 15:22] LABS: Urine Blood Negative (Negative); Urine Glucose Negative (Negative); Urine Protein Negative (Negative); Urine Specific Gravity 1.025 (1.005-1.030)
[2022-06-28 16:05] LABS: Urine Bacteria <20 /HPF (<20); Urine Mucus 1+ /HPF (None Seen); Urine RBC <5 /HPF (None Seen)
--- NOTE | 2022-06-28 16:57 | ER ---
Nurse's Notes [facility] Name: Mickie Arora Age: 71 yrs Sex: Female : 1950 Arrival Date: 06/28/2022 Time: 12:55 Bed 2 Private MD: Diagnosis: Muscle weakness (generalized) Presentation: 06/28 13:28 Chief complaint:. bm7 13:28 Chief complaint: EMS states: patient began having nausea and weakness around 9 AM this 7 morning. She has a history of dementia but is usually oriented x 3 with some intermittent confusion and this morning she felt dizzy and was not oriented. Her BGL was 184 and her vitals are stable. Coronavirus screen: At this time, the client does not indicate any symptoms associated with coronavirus-19. Ebola Screen: No symptoms or risks identified at this time. Initial Sepsis Screen: Does the patient meet any 2 criteria? No. Patient's initial sepsis screen is negative. Does the patient have a suspected source of infection? No. Patient's initial sepsis screen is negative. Risk Assessment: Do you want to hurt yourself or someone else? Patient reports no desire to harm self or others. Onset of symptoms was June 28, 2022 at 09:00. Care prior to arrival: IV initiated. 20 GA, in the left antecubital area. 13:28 Method Of Arrival: EMS: [place] [address] 13:28 Acuity: AMRITA 3 bm7 Triage Assessment: 13:31 General: Appears in no apparent distress. comfortable, Behavior is calm, cooperative, bm7 appropriate for age. Pain: Denies pain. EENT: No deficits noted. No signs and/or symptoms were reported regarding the EENT system. Neuro: Level of Consciousness is awake, alert, obeys commands, Oriented to person, place, Chart Picker are equal bilaterally Moves all extremities. Speech is normal, Facial symmetry appears normal, Pupils are PERRLA, Reports weakness Denies blurred vision headache. Cardiovascular: Chest pain is denied. Respiratory: No deficits noted. GI: Reports nausea. : No deficits noted. No signs and/or symptoms were reported regarding the genitourinary system. Derm: No deficits noted. No signs and/or symptoms reported regarding the dermatologic system. Historical: - Allergies: 13:31 No Known Allergies; bm7 - Home Meds: 13:31 atorvastatin 20 mg oral tab [Active]; rivastigmine tartrate 1.5 mg oral cap [Active]; bm7 Plavix 75 mg Oral tab [Active]; - PMHx: 13:31 Hypertensive disorder; Dementia; bm7 - PSHx: 13:31 Unable to Obtain; bm7 - Immunization history:: Adult Immunizations up to date, Client reports receiving the 2nd dose of the Covid vaccine, Client reports receiving the 1st dose of the Covid vaccine. - Social history:: Smoking status: Patient/guardian denies using tobacco products. Screenin:12 Abuse screen: Denies threats or abuse. Nutritional screening: No deficits noted. bm7 Tuberculosis screening: No symptoms or risk factors identified. Fall Risk Fall in past 12 months (25 points). Mental Status- Overestimates/Forgets Limitations (15 pts.). Assessment: 13:54 Reassessment: No changes from previously documented assessment. Patient and/or family bm7 updated on plan of care and expected duration. Pain level reassessed. 15:13 Reassessment: Patient and/or family updated on plan of care and expected duration. Pain bm7 level reassessed. Patient is alert, oriented x 3, equal unlabored respirations, skin warm/dry/pink. 15:48 Reassessment: Patient and/or family updated on plan of care and expected duration. Pain bm7 level reassessed. Patient is alert, oriented x 3, equal unlabored respirations, skin warm/dry/pink. 16:24 Reassessment: Patient and/or family updated on plan of care and expected duration. Pain bm7 level reassessed. Patient is alert, oriented x 3, equal unlabored respirations, skin warm/dry/pink. Vital Signs: 13:28 BP 120 / 86; Pulse 72; Resp 16; Temp 97.7(TE); Pulse Ox 100% on R/A; Weight 61.23 kg bm7 (R); Height 5 ft. 4 in. (162.56 cm); Pain 0/10; 14:12 BP 146 / 81; Pulse 63; Resp 16; Pulse Ox 98% on R/A; Pain 0/10; bm7 15:13 BP 131 / 74; Pulse 78; Resp 16; Pulse Ox 99% on R/A; Pain 0/10; bm7 17:34 BP 133 / 77; Pulse 64; Resp 16; Pulse Ox 99% on R/A; Pain 0/10; bm7 13:28 Body Mass Index 23.17 (61.23 kg, 162.56 cm) bm7 ED Course: 12:55 Patient arrived in ED. jl7 12:56 Renaldo Villagomez DO is Attending Physician. ms3 13:27 Joselin Anand, RN is Primary Nurse. bm7 13:30 XRAY Chest (1 view) In Process Unspecified. EDMS 13:31 Triage completed. bm7 13:31 Arm band placed on right wrist. bm7 14:12 No apparent distress. Resting quietly. Awaiting lab results. bm7 14:12 Patient has correct armband on for positive identification. Fall risk band placed. bm7 Placed in gown. Bed in low position. Side rails up X2. Adult w/ patient. Client placed on continuous cardiac and pulse oximetry monitoring. NIBP monitoring applied. eyeglass inspector on. Warm blanket given. 14:12 No provider procedures requiring assistance completed. Initial lab(s) drawn, by , marifer sent to lab. EKG done, by ED staff, reviewed by Renaldo Villagomez DO X-ray(s) taken. Maintain EMS IV. Dressing intact. Good blood return noted. Site clean \T\ dry. Gauge \T\ site: 20g LAC. Patient maintains SpO2 saturation greater than 95% on room air. 17:34 IV discontinued, intact, bleeding controlled, No redness/swelling at site. Pressure bm7 dressing applied. Administered Medications: No medications were administered Medication: 14:12 VIS not applicable for this client. bm7 Outcome: 16:57 Discharge ordered by . ms3 17:34 Discharged to home via wheelchair, with family. bm7 17:34 Condition: improved 17:34 Discharge instructions given to patient, family, Instructed on discharge instructions, follow up and referral plans. Demonstrated understanding of instructions, follow-up care. 17:45 Patient left the ED. bm7 Signatures: Dispatcher [employer] EDFavian Armendariz, RN DIPESH jl7 Renaldo Villagomez DO DO ms3 Joselin Anand, RN RN bm7
--- NOTE | 2022-06-28 16:58 | EDPHYS ---
Physician Documentation [facility] Name: Mickie Arora Age: 71 yrs Sex: Female : 1950 Arrival Date: 06/28/2022 Time: 12:55 Bed 2 Private MD: ED Physician Renaldo Villagomez HPI: 06/28 15:38 This 71 yrs old Female presents to ER via EMS with complaints of General Weakness. ms3 15:38 71-year-old female with past medical history of hypertension, dementia presents for ms3 generalized weakness, nausea, vomiting began this morning. Patient denies pain at this time. Patient denies alleviating or inciting factors. Onset: The symptoms/episode began/occurred this morning. Severity of symptoms: At their worst the symptoms were moderate in the emergency department the symptoms are unchanged. Historical: - Allergies: 13:31 No Known Allergies; bm7 - Home Meds: 13:31 atorvastatin 20 mg oral tab [Active]; rivastigmine tartrate 1.5 mg oral cap [Active]; bm7 Plavix 75 mg Oral tab [Active]; - PMHx: 13:31 Hypertensive disorder; Dementia; bm7 - PSHx: 13:31 Unable to Obtain; bm7 - Immunization history:: Adult Immunizations up to date, Client reports receiving the 2nd dose of the Covid vaccine, Client reports receiving the 1st dose of the Covid vaccine. - Social history:: Smoking status: Patient/guardian denies using tobacco products. ROS: 15:38 Constitutional: Negative for fever, and chills. Neck: Negative for injury, pain, and ms3 swelling, Cardiovascular: Negative for chest pain, and palpitations. Respiratory: Negative for shortness of breath, cough, wheezing, and pleuritic chest pain, Abdomen/GI: Negative for abdominal pain, nausea, vomiting, diarrhea, and constipation, MS/Extremity: Negative for injury and deformity, Skin: Negative for injury, rash, and discoloration. 15:38 Neuro: Positive for weakness. 15:38 All other systems are negative. Exam: 14:04 ECG was reviewed by the Attending Physician. ms3 15:38 Constitutional: This is a well developed, well nourished patient who is awake, alert, ms3 and in no acute distress. Head/Face: Normocephalic, atraumatic. Neck: Trachea midline, no cervical lymphadenopathy. Supple, full range of motion without nuchal rigidity, or vertebral point tenderness. No Meningismus. Chest/axilla: Normal chest wall appearance and motion. Nontender with no deformity. Cardiovascular: Regular rate and rhythm with a normal S1 and S2. No gallops, murmurs, or rubs. Normal PMI, no JVD. No pulse deficits. Respiratory: Lungs have equal breath sounds bilaterally, clear to auscultation and percussion. No rales, rhonchi or wheezes noted. No increased work of breathing, no retractions or nasal flaring. Abdomen/GI: Soft, non-tender, with normal bowel sounds. No distension or tympany. No guarding or rebound. No evidence of tenderness throughout. Skin: Warm, dry with normal turgor. Normal color with no rashes, no lesions, and no evidence of cellulitis. MS/ Extremity: Pulses equal, no cyanosis. Neurovascular intact. Full, normal range of motion. Neuro: Awake and alert, GCS 15, oriented to person, place, time, and situation. Cranial nerves II-XII grossly intact. Motor strength 5/5 in all extremities. Sensory grossly intact. Cerebellar exam normal. Normal gait. Psych: Awake, alert, with orientation to person, place and time. Behavior, mood, and affect are within normal limits. Vital Signs: 13:28 BP 120 / 86; Pulse 72; Resp 16; Temp 97.7(TE); Pulse Ox 100% on R/A; Weight 61.23 kg bm7 (R); Height 5 ft. 4 in. (162.56 cm); Pain 0/10; 14:12 BP 146 / 81; Pulse 63; Resp 16; Pulse Ox 98% on R/A; Pain 0/10; bm7 15:13 BP 131 / 74; Pulse 78; Resp 16; Pulse Ox 99% on R/A; Pain 0/10; bm7 17:34 BP 133 / 77; Pulse 64; Resp 16; Pulse Ox 99% on R/A; Pain 0/10; bm7 13:28 Body Mass Index 23.17 (61.23 kg, 162.56 cm) bm7 MDM: 13:45 Patient medically screened. ms3 15:38 Differential Diagnosis Electrolyte abnormality vs NSTEMI vs UTI. ms3 19:16 Data reviewed: vital signs, nurses notes, lab test result(s), EKG, radiologic studies, ms3 and as a result, I will discharge patient. Counseling: I had a detailed discussion with the patient and/or guardian regarding: the presence of at least one elevated blood pressure reading (>120/80) during this emergency department visit, lab results, radiology results, the need for outpatient follow up, to return to the emergency department if symptoms worsen or persist or if there are any questions or concerns that arise at home. ED course: Discussed labs, EKG, CXR, physical exam findings with patient. Patient to follow-up with PMD in 2 to 3 days. Patient understands and agrees with plan. All questions were answered. Return precautions discussed include worsening symptoms, or any other concerns. On reevaluation patient symptoms improved, patient is alert and oriented x4, no apparent distress, nontoxic, ambulatory in emergency department, tolerating p.o. . 06/28 12:57 Order name: Basic Metabolic Panel; Complete Time: 15:17 ms3 06/28 12:57 Order name: CBC with Diff; Complete Time: 15:17 ms3 06/28 12:57 Order name: Troponin HS; Complete Time: 15:17 ms3 06/28 12:57 Order name: XRAY Chest (1 view); Complete Time: 15:17 ms3 06/28 12:57 Order name: Urine Microscopic Only; Complete Time: 16:14 ms3 06/28 15:23 Order name: Urine Dipstick-Ancillary; Complete Time: 15:34 EDMS 06/28 12:57 Order name: EKG; Complete Time: 13:00 ms3 06/28 12:57 Order name: Cardiac monitoring; Complete Time: 13:54 ms3 06/28 12:57 Order name: EKG - Nurse/Tech; Complete Time: 15:22 ms3 06/28 12:57 Order name: IV Saline Lock; Complete Time: 13:54 ms3 06/28 12:57 Order name: Labs collected and sent; Complete Time: 13:54 ms3 06/28 12:57 Order name: O2 Per Protocol; Complete Time: 13:54 ms3 06/28 12:57 Order name: O2 Sat Monitoring; Complete Time: 13:54 ms3 06/28 12:57 Order name: Urine Dipstick-Ancillary (obtain specimen); Complete Time: : ms3 06/28 15:42 Order name: EKG Strip; Complete Time: 15:47 ms3 EC:04 Rate is 61 beats/min. Rhythm is regular. QRS [place] is Normal. [place] interval is normal. ms3 Clinical impression: NSR w/ Non-specific ST/T Changes. Interpreted by me. Reviewed by me. Administered Medications: No medications were administered Disposition Summary: 06/28/22 16:57 Discharge Ordered Location: Home ms3 Condition: Stable ms3 Diagnosis - Muscle weakness (generalized) ms3 Followup: ms3 - With: Private Physician - When: 2 - 3 days - Reason: Recheck today's complaints Discharge Instructions: - Discharge Summary Sheet ms3 - Weakness ms3 Forms: - Medication Reconciliation Form ms3 - Thank You Letter ms3 - Antibiotic Education ms3 - Prescription Opioid Use ms3 Signatures: Dispatcher [employer] Renaldo Ewing DO DO ms3 Joselin Anand, RN RN bm7
[2022-06-28 18:07] VITALS: TEMP 97.7
[2022-06-28 18:12] VITALS: O2SAT 99
[2022-06-28 18:15] VITALS: BP 133/77
--- NOTE | 2022-06-29 08:14 | EKG ---
Test Date: 2022-06-28 Test Time: 14:04:22 Histologist: NESHA MEASUREMENT RESULTS: Intervals: Rate: 61 MT: 200 QRSD: 86 QT: 474 QTc: 477 [place]: P: 52 MT: 200 QRS: 42 T: 67 INTERPRETIVE STATEMENTS: Normal sinus rhythm Anterior infarct, age undetermined Abnormal ECG Compared to ECG 02/26/2021 10:48:03 No significant changes Electronically Signed On 06-29-22 08:11:11 CDT by Dave Vernon
== END 2022-06-28 17:45 | disposition home or self-care (01) ==
LOC: ER 12:53
DX: M62.81 Muscle weakness (generalized) (principal); I10 Essential (primary) hypertension; F03.90 Unspecified dementia, unspecified severity, without behavioral disturbance, psychotic disturbance, mood disturbance, and anxiety; Z79.01 Long term (current) use of anticoagulants
CPT/HCPCS: 36415; 71045; 80048; 81003; 81015; 84484; 85025; 93005; 99285